=== PATIENT | male | born 1985 | race Caucasian/White ===

== ENCOUNTER 2016-12-27 03:24 | Emergency (ER) | payer OTHER ==
[~2016-12-27] VITALS: Ht 177.8 cm; Wt 81.6 kg
[2016-12-27 04:48] VITALS: BP 133/70
--- NOTE | 2016-12-27 06:07 | PHYS DOC ---
Past History Past Medical History: No Pertinent History Past Surgical History: No Surgical History Drug Use: None Adult General Chief Complaint Chief Complaint: BACK PAIN - NO INJURY HPI HPI Patient is a 31 year old M who presents with R sided flank pain that is intermittent and sharp. He feels that his pain radiates into the groin. He does not have any other associated symptoms at this time. He said no injury and no previous similar episodes. 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 Review of Systems Review of Systems Constitutional: Denies fever or chills [] Eyes: Denies change in visual acuity, redness, or eye pain [] HENT: Denies nasal congestion or sore throat [] Respiratory: Denies cough or shortness of breath [] Cardiovascular: No additional information not addressed in HPI [] GI: Denies abdominal pain, vomiting, bloody stools or diarrhea [] nausea with episodes of pain : Denies dysuria or hematuria [] Musculoskeletal: Negative except history of present illness Integument: Denies rash or skin lesions [] Neurologic: Denies headache, focal weakness or sensory changes [] Endocrine: Denies polyuria or polydipsia [] Family History Family History Noncontributory Current Medications Current Medications No current medications Allergies Allergies Allergies Coded Allergies Type Severity Reaction Last Updated Verified No Known Drug Allergies 12/27/16 No Physical Exam Physical Exam Constitutional: Well developed, well nourished, no acute distress, non-toxic appearance. [] HENT: Normocephalic, atraumatic, Eyes: PERRLA, EOMI, conjunctiva normal, no discharge. [] Neck: Normal range of motion, no tenderness, supple, no stridor. [] Cardiovascular:Heart rate regular rhythm, no murmur [] Lungs & Thorax: Bilateral breath sounds clear to auscultation [] Abdomen: Bowel sounds normal, soft, no tenderness, no masses, no pulsatile masses. [] Skin: Warm, dry, no erythema, no rash. [] Back: No tenderness, no CVA tenderness. [] Mild right-sided paraspinal tenderness to palpation Extremities: No tenderness, no cyanosis, no clubbing, ROM intact, no edema. [] Neurologic: Alert and oriented X 3, normal motor function, normal sensory function, no focal deficits noted. [] Psychologic: Affect normal, judgement normal, mood normal. [] Current Patient Data Vital Signs Vital Signs Date Time Temp Pulse Resp B/P (MAP) Pulse Ox O2 Delivery O2 Flow Rate FiO2 12/27/16 04:48 98.0 64 16 Room Air EKG EKG [] Radiology/Procedures Radiology/Procedures [] Course & Med Decision Making Course & Med Decision Making Pertinent Labs and Imaging studies reviewed. (See chart for details) Care was transferred to Dr. Prieto Duvall Disclaimer Jadiel Disclaimer This chart was dictated in whole or in part using Voice Recognition software in a busy, high-work load, and often noisy Emergency Department environment. It may contain unintended and wholly unrecognized errors or omissions. Departure Departure: Referrals: PCP,NO (PCP) ROSALIO ROSALES MD Dec 27, 2016 06:07
[2016-12-27 06:30] LABS: BACTERIA,URINE FEW /HPF (0-FEW); BILIRUBIN,URINE NEG (NEG); CLARITY,URINE HAZY; COLOR,URINE AMBER; GLUCOSE,URINE NEG (NEG); NITRITE,URINE NEG (NEG); RBC,URINE >40 /HPF (0-2); UROBILINOGEN,URINE 1 mg/dL (0.2 mg/dL)
[2016-12-27 06:31] LABS: SQUAMOUS EPITHELIAL CELL,UR OCC /LPF
[2016-12-27] MEDS ORDERED: IBUP800T19 PO (06:43)
[2016-12-27] MEDS ORDERED: HYDR-971 PO (06:43)
[2016-12-27] MEDS ORDERED: TAMS0.4C97 PO (06:45)
--- NOTE | 2016-12-27 06:46 | PHYS DOC ---
Past History Past Medical History: No Pertinent History Past Surgical History: No Surgical History Drug Use: None Adult General HPI HPI This is a continuation of the visit started by . Review of Systems Review of Systems Allergies Allergies Physical Exam Physical Exam Current Patient Data Vital Signs Vital Signs Date Time Temp Pulse Resp B/P (MAP) Pulse Ox O2 Delivery O2 Flow Rate FiO2 12/27/16 04:48 98.0 64 16 Room Air Lab Results Laboratory Tests Test 12/27/16 05:37 Urine Collection Type Unknown Urine Color Kristyn Urine Clarity Hazy Urine pH 6.0 Urine Specific [place] 1.025 Urine Protein 30 mg/dl (NEG-TRACE) Urine Glucose (UA) Neg mg/dL (NEG) Urine Ketones (Stick) Neg mg/dL (NEG) Urine Blood Large (NEG) Urine Nitrite Neg (NEG) Urine Bilirubin Neg (NEG) Urine Urobilinogen Dipstick 1 mg/dL (0.2 mg/dL) Urine Leukocyte Esterase Neg (NEG) Urine RBC >40 /HPF (0-2) Urine WBC 1-4 /HPF (0-4) Urine Squamous Epithelial Cells Occ /LPF Urine Bacteria Few /HPF (0-FEW) Urine Mucus Slight /LPF EKG EKG [] Radiology/Procedures Radiology/Procedures [] Course & Med Decision Making Course & Med Decision Making I assumed care of this patient from Dr. Mayer at 0600. The patient presented with right flank pain suggestive of a kidney stone. We were waiting on the patient's urinalysis results. There was a significant delay because the patient arrived at the same time as a critical patient that required all the resources of the emergency department for quite some time. Urinalysis does show blood but nothing else of significance. I rechecked the patient. He is resting comfortably. We discussed the options of management for suspected kidney stone versus CT scan and he prefers to avoid CT scan at this time. The patient has never had a kidney stone before. I discussed with him at length what to expect and advised urology follow-up if further concerns or if he has not passed the stone in about a week. See instructions for plan. [] Dragon Disclaimer Dragon Disclaimer This chart was dictated in whole or in part using Voice Recognition software in a busy, high-work load, and often noisy Emergency Department environment. It may contain unintended and wholly unrecognized errors or omissions. Departure Departure: Impression: Primary Impression: Renal colic on right side Disposition: 01 HOME, SELF-CARE Condition: STABLE Referrals: PCP,WILFRID (PCP) Patient Instructions: Kidney Stones, [id number] Additional Instructions: As we discussed, your symptoms are likely from a kidney stone. Most kidney stones pass on their own. It may take a few days. It may hurt off and on. Drink plenty of fluids. You should be urinating every hour or 2 if you are drinking enough. Strain your urine, save the stone when you pass it in case it needs to be analyzed in the future. Flomax as directed, one daily until the kidney stone passes. This helps relax the ureter muscle. Ibuprofen every 8 hours until the kidney stone passes. This also helps relax the ureter muscle. Hydrocodone if needed for more severe pain. You may combine all 3 of these medications. Hydrocodone is an opiate. It can be addicting and constipating and sedating. Do not take while working or driving. Scripts Tamsulosin Hcl (FLOMAX) 0.4 Mg Cap.er.24h 1 CAP PO DAILY for kidney stone , #14 CAP 11 Refills Prov: NELSON STRAUSS MD 12/27/16 Ibuprofen (IBUPROFEN) 800 Mg Tablet 1 TAB PO Q8HRS for kidney stone pain, #30 TAB Prov: NELSON STRAUSS MD 12/27/16 Hydrocodone Bit/Acetaminophen (NORCO 5-325 TABLET) 1 Each Tablet 1 TAB PO PRN Q6HRS Y for PAIN, #10 TAB 0 Refills Prov: NELSON STRAUSS MD 12/27/16 NELSON STRAUSS MD Dec 27, 2016 06:46
== END 2016-12-27 06:57 | disposition home or self-care (01) ==
LOC: ER 03:24
DX: N23 Unspecified renal colic (principal)
CPT/HCPCS: 81001; 99283